=== PATIENT | male | born 1985 | race Caucasian/White ===

== ENCOUNTER 2016-11-05 11:17 | Emergency (ER) | payer BC ==
--- NOTE | 2016-11-05 12:06 | EDM.PDOC ---
ED HPI GENERAL MEDICAL PROBLEM - General Chief Complaint: Upper Extremity Injury/Pain Stated Complaint: PAIN IN LEFT HAND Time Seen by Provider: 11/05/16 11:40 Source of Information: Reports: Patient History Limitations: Reports: No Limitations - History of Present Illness INITIAL COMMENTS - FREE TEXT/NARRATIVE: History of present illness: [31-year-old male comes in complaining of left hand pain status post punching a wall there is an obvious abrasion over the third digit knuckle with generalized swelling to the hand] Review of systems: As per history of present illness and below otherwise all systems reviewed and negative. Past medical history: As per history of present illness and as reviewed below otherwise noncontributory. Surgical history: As per history of present illness and as reviewed below otherwise noncontributory. Social history: No reported history of drug or alcohol abuse. Family history: As per history of present illness and as reviewed below otherwise noncontributory. Physical exam: HEENT: Atraumatic, normocephalic, pupils reactive, negative for conjunctival pallor or scleral icterus, mucous membranes moist, throat clear, neck supple, nontender, trachea midline. Lungs: Clear to auscultation, breath sounds equal bilaterally, chest nontender. Heart: S1S2, regular, negative for clicks, rubs, or JVD. Abdomen: Soft, nondistended, nontender. Negative for masses or hepatosplenomegaly. Negative for costovertebral tenderness. Pelvis: Stable nontender. Genitourinary: Deferred. Rectal: Deferred. Extremities: Left hand edematous with good pulses and abrasion to the area over knuckle of hand at the third digit, negative for cords or calf pain. Neurovascular unremarkable. Neuro: Awake, alert, oriented. Cranial nerves II through XII unremarkable. Cerebellum unremarkable. Motor and sensory unremarkable throughout. Exam nonfocal. Diagnostics: [X-ray of hand] Therapeutics: [] Impression: [Boxer's fracture] Plan: [Ulnar gutter splint with follow-up with Ortho] Definitive disposition and diagnosis as appropriate pending reevaluation and review of above. left hand Pain Score (Numeric/FACES): 7 - Related Data Allergies Allergy/AdvReac Type Severity Reaction Status Date / Time cefaclor [From [facility]] Allergy Hives Verified 11/05/16 11:31 Home Meds: Home Meds . [No Known Home Meds] 11/05/16 [History] Past Medical History - Past Health History Medical/Surgical History: Denies Medical/Surgical History Social & Family History - Family History Family Medical History: Noncontributory - Tobacco Use Smoking Status *Q: Current Every Day Smoker Years of Tobacco use: 15 Packs/Tins Daily: 1 - Recreational Drug Use Recreational Drug Use: Yes Drug Use in Last 12 Months: Yes Recreational Drug Type: Reports: Marijuana/Hashish Review of Systems - Review of Systems Review Of Systems: See Below (See history of present illness) ED EXAM, GENERAL - Physical Exam Exam: See Below (See history of present illness) Course - Vital Signs Last Recorded V/S: Last Vital Signs Temp 36.6 C 11/05/16 11:17 Pulse 90 11/05/16 11:17 Resp 18 11/05/16 11:17 BP 127/74 11/05/16 11:17 Pulse Ox 98 11/05/16 11:17 Departure - Departure Time of Disposition: 13:15 Disposition: Home, Self-Care 01 Condition: Good Clinical Impression: Boxers fracture - Discharge Information Instructions: How to Use a Sling, [id number], Cast or Splint Care, Easy-to- Read Referrals: PCP,Unknown [Primary Care Provider] - Forms: ED Department Discharge Additional Instructions: The following information is given to patients seen in the emergency department who are being discharged to home. This information is to outline your options for follow-up care. We provide all patients seen in our emergency department with a follow-up referral. The need for follow-up, as well as the timing and circumstances, are variable depending upon the specifics of your emergency department visit. If you don't have a primary care physician on staff, we will provide you with a referral. We always advise you to contact your personal physician following an emergency department visit to inform them of the circumstance of the visit and for follow-up with them and/or the need for any referrals to a consulting specialist. The emergency department will also refer you to a specialist when appropriate. This referral assures that you have the opportunity for follow-up care with a specialist. All of these measure are taken in an effort to provide you with optimal care, which includes your follow-up. Under all circumstances we always encourage you to contact your private physician who remains a resource for coordinating your care. When calling for follow-up care, please make the office aware that this follow-up is from your recent emergency room visit. If for any reason you are refused follow-up, please contact the [facility] Emergency Department at and asked to speak to the emergency department charge nurse. Take medication as directed Follow-up with PCP 1-2 days Use splint and sling as directed Call Ortho for a follow-up appointment contact information provided Return to ED as needed as discussed [facility] [address], [address] [place] [address]
--- NOTE | 2016-11-05 12:50 | CR ---
EXAMINATION: Left hand HISTORY: Pain COMPARISON: None TECHNIQUE: 2 views FINDINGS/IMPRESSION: There is a mildly angulated nondisplaced mid fifth metacarpal fracture identifie d with overlying soft tissue swelling. Remaining osseous structures and joint spaces appear intact. B one mineralization is otherwise normal.
[2016-11-05 16:23] VITALS: BP 124/79
== END 2016-11-05 13:42 | disposition home or self-care (01) ==
LOC: MW.ED 11:17
DX: S62.357A Nondisplaced fracture of shaft of fifth metacarpal bone, left hand, initial encounter for closed fracture (principal); F17.210 Nicotine dependence, cigarettes, uncomplicated; Z88.1 Allergy status to other antibiotic agents; W22.01XA Walked into wall, initial encounter
CPT/HCPCS: 29125; 73120; 99283; A4566; 99282

== ENCOUNTER 2017-08-07 10:52 | Emergency (ER) | payer BC ==
--- NOTE | 2017-08-07 11:39 | EDM.PDOC ---
ED HPI GENERAL MEDICAL PROBLEM - General Chief Complaint: General Stated Complaint: COUGHING Time Seen by Provider: 08/07/17 11:00 Source of Information: Reports: Patient History Limitations: Reports: No Limitations - History of Present Illness INITIAL COMMENTS - FREE TEXT/NARRATIVE: HISTORY AND PHYSICAL: History of present illness: [Comes to the ER c/o cough, fever and chills. Has been present for the past 3 days, and feels that he is worsening. Is experiencing thick yellow nasal discharge, cough productive for yellow sputum. He has been experiencing episodes of feeling hot and sweaty alternating with chills. Has not checked his temperature at home. Does not have any wheezing chest pain or shortness of breath. he's felt more fatigued than usual. Decreased appetite. No abdominal pain nausea or vomiting. He has not taken any medications for his symptoms. Looks cigarettes daily] Review of systems: As per history of present illness and below otherwise all systems reviewed and negative. Past medical history: As per history of present illness and as reviewed below otherwise noncontributory. Surgical history: As per history of present illness and as reviewed below otherwise noncontributory. Social history: No reported history of drug or alcohol abuse. Family history: As per history of present illness and as reviewed below otherwise noncontributory. Physical exam: HEENT: Atraumatic, normocephalic. TM's are pearly gutierrez and without erythema. Nares patent, copious amount of yellow drainage in nose. Oral mucous membranes pink and moist. Neck supple, no lymphadenopathy. Lungs: Rales are present to posterior bilateral lower lung gonzales., breath sounds equal bilaterally. Heart: S1S2, regular, negative for clicks, rubs, or JVD. Abdomen: Soft, nondistended, nontender. Negative for masses guarding and rebound. Pelvis: Stable nontender. Genitourinary: Deferred. Rectal: Deferred. Extremities: Atraumatic, negative for cords or calf pain. Neurovascular unremarkable. Neuro: Awake, alert, oriented. Motor and sensory unremarkable throughout. Exam nonfocal. Diagnostics: [Chest x-ray] Impression: [Upper respiratory infection] Plan: [Discussed with patient that a mild infiltrate is appreciated by this provider on his chest x-ray. Due to the severity of his symptoms and the fact that he smokes regularly, will treat with azithromycin in the form of Z-Gustavo. He is given a referral to follow-up with PCP. Recommend Robitussin Delsym Mucinex and cool moist air. He verbalized understanding of today's discussion. Strict return precautions are reviewed.] Definitive disposition and diagnosis as appropriate pending reevaluation and review of above. Generalized Pain Score (Numeric/FACES): 6 - Related Data Allergies Allergy/AdvReac Type Severity Reaction Status Date / Time cefaclor [From Ceclor] Allergy Hives Verified 08/07/17 11:04 Home Meds: Home Meds . [No Known Home Meds] 11/05/16 [History] Past Medical History - Past Health History Medical/Surgical History: Denies Medical/Surgical History - Infectious Disease History Infectious Disease History: Reports: Chicken Pox - Past Surgical History HEENT Surgical History: Reports: Adenoidectomy Social & Family History - Family History Family Medical History: Noncontributory - Tobacco Use Smoking Status *Q: Current Every Day Smoker Years of Tobacco use: 17 Packs/Tins Daily: 1 - Caffeine Use Caffeine Use: Reports: Energy Drinks, Soda - Recreational Drug Use Recreational Drug Use: Yes Recreational Drug Type: Reports: Marijuana/Hashish Recreational Drug Use Frequency: Rarely ED ROS GENERAL - Review of Systems Review Of Systems: ROS reveals no pertinent complaints other than HPI. ED EXAM, GENERAL - Physical Exam Exam: See Below Course - Vital Signs Last Recorded V/S: Last Vital Signs Temp 98.3 F 08/07/17 11:04 Pulse 78 08/07/17 12:39 Resp 18 08/07/17 12:39 BP 128/76 08/07/17 12:39 Pulse Ox 98 08/07/17 12:39 - Orders/Labs/Meds Orders: Active Orders 24 hr Category Date Time Status Chest 2V [CR] Stat Exams 08/07/17 11:22 Taken Departure - Departure Time of Disposition: 12:30 Disposition: Home, Self-Care 01 Condition: Good Clinical Impression: URI (upper respiratory infection) - Discharge Information Instructions: Upper Respiratory Infection, Adult, [id number] Referrals: PCP,None [Primary Care Provider] - Forms: ED Department Discharge Additional Instructions: The following information is given to patients seen in the emergency department who are being discharged to home. This information is to outline your options for follow-up care. We provide all patients seen in our emergency department with a follow-up referral. The need for follow-up, as well as the timing and circumstances, are variable depending upon the specifics of your emergency department visit. If you don't have a primary care physician on staff, we will provide you with a referral. We always advise you to contact your personal physician following an emergency department visit to inform them of the circumstance of the visit and for follow-up with them and/or the need for any referrals to a consulting specialist. The emergency department will also refer you to a specialist when appropriate. This referral assures that you have the opportunity for follow-up care with a specialist. All of these measure are taken in an effort to provide you with optimal care, which includes your follow-up. Under all circumstances we always encourage you to contact your private physician who remains a resource for coordinating your care. When calling for follow-up care, please make the office aware that this follow-up is from your recent emergency room visit. If for any reason you are refused follow-up, please contact the [facility] emergency department at and asked to speak to the emergency department charge nurse. [facility] [address] [place] [phone] Establish care with a local primary care provider in follow-up there in the next 48-72 hours. Take antibiotic and medication as prescribed. Return to ER as needed as discussed.
[2017-08-07 12:40] VITALS: BP 128/76
--- NOTE | 2017-08-08 12:42 | CR ---
EXAM DATE: 08/07/17 PATIENT'S AGE: 32 Patient: KIMBERLY FRASER Facility: [place], [place] Site . Site : 1985 Study: XRay Chest [id number]/7/2018 11:46:59 AM Ordering Physician: Doctor Powell Final Report: INDICATION: SOB, COUGH X 3DAYS TECHNIQUE: Chest 2 views. COMPARISON: None. FINDINGS: Cardiovascular and mediastinum: Heart size and vasculature are normal in caliber and appearance. Mediastinum is within normal limits. Lungs and pleural spaces: Lungs are clear. No sign of infiltrate or mass. No sign of pleural effusion. No pneumothorax. Bones and soft tissues: No significant findings. IMPRESSION: Unremarkable chest. Dictated by: Reginald Camacho MD @ 08/07/2017 12:24:50 (Electronic Signature) Report Signed by Proxy. STR[facility]ORIAL HOSPITALChantelle
== END 2017-08-07 12:35 | disposition home or self-care (01) ==
LOC: MW.ED 10:52
DX: J06.9 Acute upper respiratory infection, unspecified (principal); F17.210 Nicotine dependence, cigarettes, uncomplicated
CPT/HCPCS: 71046; 71046-26; 99283

== ENCOUNTER 2019-03-29 07:15 | Day surgery (SDC) | payer BC ==
[~2019-03-29 07:15] MED LIST: Lactated Ringers 1,000 ML IV SCH
--- NOTE | 2019-03-29 07:57 | PCM.PREANE ---
Preanesthetic Assessment - Anesthesia/Transfusion/Family Hx Anesthesia History: Prior Anesthesia Without Reaction Family History of Anesthesia Reaction: No Transfusion History: No Prior Transfusion(s) - Review of Systems General: No Symptoms Pulmonary: No Symptoms Cardiovascular: No Symptoms Gastrointestinal: No Symptoms Neurological: No Symptoms Other: Reports: None - Physical Assessment NPO Status Date: 03/28/19 Vital Signs: Last Vital Signs Temp 97.2 F 03/29/19 07:25 Pulse 68 03/29/19 07:25 Resp 16 03/29/19 07:25 BP 124/78 03/29/19 07:25 Pulse Ox 97 03/29/19 07:25 Height: 5 ft 10 in Weight: 91.626 kg ASA Class: 2 Mental Status: Alert & Oriented x3 Airway Class: Mallampati = 2 Dentition: Reports: [place](s) ROM/Head Extension: Full Lungs: Clear to Auscultation, Normal Respiratory Effort Cardiovascular: Regular Rate, Regular Rhythm - Allergies Allergies/Adverse Reactions: Allergies Allergy/AdvReac Type Severity Reaction Status Date / Time cefaclor [From Ceclor] Allergy Hives Verified 03/29/19 07:45 - Blood Blood Available: No - Anesthesia Plan Pre-Op Medication Ordered: None - Acknowledgements Anesthesia Type Planned: General Anesthesia Pt an Appropriate Candidate for the Planned Anesthesia: Yes Alternatives and Risks of Anesthesia Discussed w Pt/Guardian: Yes Pt/Guardian Understands and Agrees with Anesthesia Plan: Yes Additional Comments: PMH: gerd/reflux, umb hernia, quit smoking 4 wks ago PLAN: tiva PreAnesthesia Questionnaire - Past Health History Medical/Surgical History: Denies Medical/Surgical History Gastrointestinal History: Reports: GERD Musculoskeletal History: Reports: Fracture Other Musculoskeletal History: hx fx arm as a child - Infectious Disease History Infectious Disease History: Reports: Chicken Pox - Past Surgical History Head Surgeries/Procedures: Reports: None HEENT Surgical History: Reports: Adenoidectomy - SUBSTANCE USE Smoking Status *Q: Former Smoker Tobacco Use Within Last Twelve Months: Cigarettes Recreational Drug Type: Reports: Marijuana/Hashish - HOME MEDS Home Medications: Home Meds Calcium Carbonate [Tums] 1 tab.chew CHEW ASDIRECTED PRN 03/24/19 [History] - CURRENT (IN HOUSE) MEDS Current Meds: Current Medications Lactated Ringer's (Ringers, Lactated) 1,000 mls @ 125 mls/hr IV ASDIRECTED [facility] Last Admin: 03/29/19 07:39 Dose: 125 mls/hr
[2019-03-29] MEDS ORDERED: Lidocaine 2% 5 ML SDV ONE (08:06)
[2019-03-29] MEDS ORDERED: fentaNYL 100 MCG/2 ML SDV ONE (08:06)
[2019-03-29] MEDS ORDERED: Midazolam 1 MG/ML 2 ML SDV ONE ×2 (08:06→09:16)
[2019-03-29] MEDS ORDERED: Propofol 200 MG/20 ML SDV ONE ×3 (08:06→10:00)
[2019-03-29] MEDS ORDERED: Lactated Ringers 1,000 ML IV SCH (08:45)
--- NOTE | 2019-03-29 08:46 | PCM.OPNOTE ---
- General Post-Op/Procedure Note Date of Surgery/Procedure: 03/29/19 Operative Procedure(s): Esophagogastroduodenoscopy with gastric and esophageal biopsies Pre Op Diagnosis: Chronic progressive heartburn Post-Op Diagnosis: Mild chronic gastritis. Acute esophagitis Anesthesia Technique: MAC (ASA II) Primary Surgeon: Tommie Alvares Condition: Good Free Text/Narrative:: DICTATION [id number] CPT CODE [id number]
--- NOTE | 2019-03-29 08:59 | PCM.POSTAN ---
POST ANESTHESIA ASSESSMENT - MENTAL STATUS Mental Status: Alert, Oriented - VITAL SIGNS Vital Signs: Last Vital Signs Temp 97.2 F 03/29/19 07:25 Pulse 72 03/29/19 08:53 Resp 21 H 03/29/19 08:53 BP 143/73 H 03/29/19 08:53 Pulse Ox 96 03/29/19 08:53 - RESPIRATORY Respiratory Status: Respiratory Rate WNL, Airway Patent, O2 Saturation Stable - CARDIOVASCULAR CV Status: Pulse Rate WNL, Blood Pressure Stable - GASTROINTESTINAL GI Status: No Symptoms - PAIN Pain Score: 0 - POST OP HYDRATION Hydration Status: Adequate & Stable
[2019-03-29 09:17] VITALS: BP 139/73; PULSE 71
--- NOTE | 2019-03-29 09:20 | PCM48HPAN ---
Post Anesthesia Note - EVALUATION WITHIN 48HRS OF ANESTHETIC Vital Signs in Normal Range: Yes Patient Participated in Evaluation: Yes Respiratory Function Stable: Yes Airway Patent: Yes Cardiovascular Function Stable: Yes Hydration Status Stable: Yes Pain Control Satisfactory: Yes Nausea and Vomiting Control Satisfactory: Yes Mental Status Recovered: Yes Vital Signs: Last Vital Signs Temp 97.0 F 03/29/19 09:00 Pulse 71 03/29/19 09:00 Resp 14 03/29/19 09:00 BP 139/73 03/29/19 09:00 Pulse Ox 94 L 03/29/19 09:00
[2019-03-29] MEDS ORDERED: Phenylephrine/Normal Saline 100 MCG/ML 10 ML Syringe ONE (10:24)
--- NOTE | 2019-03-29 13:47 | OR ---
SURGEON: Tommie Alvares M.D. DATE OF PROCEDURE: 03/29/2019 OPERATION PERFORMED: Esophagogastroduodenoscopy with gastric and esophageal biopsies. PRIMARY SURGEON: Tommie Alvares MD. ANESTHESIA: MAC. ASA CLASSIFICATION: II. PREOPERATIVE DIAGNOSES: 1. Chronic progressive heartburn. 2. Mild hematemesis. POSTOPERATIVE DIAGNOSES: 1. Mild chronic gastritis. 2. Distal esophagitis. DESCRIPTION OF PROCEDURE: The patient was taken to the endoscopy room, positioned on the endoscopy table in the supine position. Time-out was called for appropriate identification of the patient and procedure. Monitored anesthesia care was provided. The bite block was placed between the patient's teeth. The gastroscope was inserted through the bite block and advanced through the oropharynx into the esophagus and subsequently through the esophagus and stomach into the duodenum where examination was now carried out in a retrograde fashion. The duodenum showed no acute inflammatory changes or ulcerations. The gastroscope was withdrawn to the stomach, which did show a mild gastritis. Antral biopsies were obtained to look for the presence of Helicobacter pylori. The gastroscope was retroflexed to visualize the proximal stomach. No proximal ulcers were identified and there was no significant hiatal hernia. The gastroscope was then straightened and slowly withdrawn, carefully visualizing the greater and lesser curvatures. Again, no ulcerations were noted. The GE junction did show mild to moderate inflammatory changes. Biopsies of the distal esophagus were obtained. The esophagus itself demonstrated good contractility. No mid or proximal lesions were identified. The vocal cords were visualized as the scope was withdrawn. No vocal cord lesions were identified. The gastroscope was then removed with the patient having tolerated the procedure well. He was taken to recovery room in stable condition. NGOZI / ANIA /[id number]
== END 2019-03-29 09:49 | disposition home or self-care (01) ==
LOC: MW.SDS 07:15
PROVIDERS: ATTEND Surgery
DX: K21.0 Gastro-esophageal reflux disease with esophagitis (principal); K29.51 Unspecified chronic gastritis with bleeding; Z87.891 Personal history of nicotine dependence; Z88.1 Allergy status to other antibiotic agents
CPT/HCPCS: 43239; J2001; J2250; J2370; J2704; J3010; J7120; 00731; 88305; 88312

== ENCOUNTER 2019-05-03 06:21 | Day surgery (SDC) | payer BC ==
[~2019-05-03 06:21] MED LIST changes: +Ciprofloxacin in D5W 400 MG in Premix Bag 1 BAG IV SCH
[2019-05-03] MEDS ORDERED: Ondansetron 4 MG/2 ML SDV ONE (07:08)
[2019-05-03] MEDS ORDERED: Lidocaine 2% 5 ML SDV ONE (07:08)
[2019-05-03] MEDS ORDERED: Midazolam 1 MG/ML 2 ML SDV ONE (07:09)
[2019-05-03] MEDS ORDERED: fentaNYL 100 MCG/2 ML SDV ONE (07:09)
[2019-05-03] MEDS ORDERED: Propofol 200 MG/20 ML SDV ONE (07:09)
[2019-05-03] MEDS ORDERED: ceFAZolin 1 GM Vial ONE (07:19)
[2019-05-03] MEDS ORDERED: Bupivacaine 0.5% 10 ML SDV ONE (07:19)
--- NOTE | 2019-05-03 07:25 | PCM.PREANE ---
Preanesthetic Assessment - Anesthesia/Transfusion/Family Hx Anesthesia History: Prior Anesthesia Without Reaction Family History of Anesthesia Reaction: No Transfusion History: No Prior Transfusion(s) - Review of Systems General: No Symptoms Pulmonary: No Symptoms Cardiovascular: No Symptoms Neurological: No Symptoms Other: Reports: None - Physical Assessment NPO Status Date: 05/02/19 Vital Signs: Last Vital Signs Temp 97.3 F 05/03/19 06:33 Pulse 66 05/03/19 06:33 Resp 14 05/03/19 06:33 BP 114/75 05/03/19 06:33 Pulse Ox 96 05/03/19 06:33 Height: 5 ft 10 in Weight: 88.451 kg ASA Class: 2 Mental Status: Alert & Oriented x3 Airway Class: Mallampati = 2 Dentition: Reports: Normal Dentition ROM/Head Extension: Full Lungs: Clear to Auscultation, Normal Respiratory Effort Cardiovascular: Regular Rate, Regular Rhythm - Allergies Allergies/Adverse Reactions: Allergies Allergy/AdvReac Type Severity Reaction Status Date / Time cefaclor [From Ceclor] Allergy Hives Verified 05/03/19 07:05 - Blood Blood Available: No - Anesthesia Plan Pre-Op Medication Ordered: None - Acknowledgements Anesthesia Type Planned: General Anesthesia Pt an Appropriate Candidate for the Planned Anesthesia: Yes Alternatives and Risks of Anesthesia Discussed w Pt/Guardian: Yes Pt/Guardian Understands and Agrees with Anesthesia Plan: Yes Additional Comments: PMH: chronic gastritis, inc umb hernia PLAN: [place] PreAnesthesia Questionnaire - Past Health History Medical/Surgical History: Denies Medical/Surgical History HEENT History: Reports: None Cardiovascular History: Reports: None Respiratory History: Reports: None Gastrointestinal History: Reports: GERD Genitourinary History: Reports: None Musculoskeletal History: Reports: Fracture Other Musculoskeletal History: hx fx arm as a child Neurological History: Reports: None Psychiatric History: Reports: None Endocrine/Metabolic History: Reports: None Hematologic History: Reports: None Immunologic History: Reports: None Oncologic (Cancer) History: Reports: None Dermatologic History: Reports: None - Infectious Disease History Infectious Disease History: Reports: Chicken Pox - Past Surgical History Head Surgeries/Procedures: Reports: None HEENT Surgical History: Reports: Adenoidectomy Cardiovascular Surgical History: Reports: None Respiratory Surgical History: Reports: None GI Surgical History: Reports: None Male Surgical History: Reports: None Endocrine Surgical History: Reports: None Neurological Surgical History: Reports: None Musculoskeletal Surgical History: Reports: None Oncologic Surgical History: Reports: None Dermatological Surgical History: Reports: None - SUBSTANCE USE Smoking Status *Q: Former Smoker Tobacco Use Within Last Twelve Months: Cigarettes Recreational Drug Type: Reports: Marijuana/Hashish Recreational Drug Last Use: 1 month ago - HOME MEDS Home Medications: Home Meds Calcium Carbonate [Tums] 1 tab.chew CHEW ASDIRECTED PRN 03/24/19 [History] - CURRENT (IN HOUSE) MEDS Current Meds: Current Medications Ciprofloxacin/Dextrose 400 mg/ (Premix) 200 mls @ 200 mls/hr IV Q12H [facility] Last Admin: 05/03/19 07:06 Dose: 200 mls/hr Lactated Ringer's (Ringers, Lactated) 1,000 mls @ 125 mls/hr IV ASDIRECTED [facility] Last Admin: 05/03/19 07:03 Dose: 125 mls/hr Discontinued Medications Bupivacaine HCl (Sensorcaine-Mpf 0.5%) Confirm Administered Dose 10 ml .ROUTE .STK-MED ONE Stop: 05/03/19 07:20 Cefazolin Sodium (Ancef) Confirm Administered Dose 1 gm .ROUTE .STK-MED ONE Stop: 05/03/19 07:20 Fentanyl (Sublimaze) Confirm Administered Dose 300 mcg .ROUTE .STK-MED ONE Stop: 05/03/19 07:10 Lidocaine (Xylocaine-Mpf 2%) Confirm Administered Dose 5 ml .ROUTE .STK-MED ONE Stop: 05/03/19 07:09 Midazolam HCl (Versed 1 Mg/Ml) Confirm Administered Dose 2 mg .ROUTE .STK-MED ONE Stop: 05/03/19 07:10 Ondansetron HCl (Zofran) Confirm Administered Dose 4 mg .ROUTE .STK-MED ONE Stop: 05/03/19 07:09 Propofol (Diprivan 20 Ml) Confirm Administered Dose 200 mg .ROUTE .STK-MED ONE Stop: 05/03/19 07:10
[2019-05-03] MEDS ORDERED: Glycopyrrolate 0.2 MG/ML SDV ONE ×2 (08:13→08:20)
[2019-05-03] MEDS ORDERED: fentaNYL 100 MCG/2 ML SDV IVPUSH PRN (08:32)
[2019-05-03] MEDS ORDERED: 50% Dextrose in Water 50 ML Syringe IVPUSH PRN (08:32)
[2019-05-03] MEDS ORDERED: EPINEPHrine 1:10,000 1 MG/10 ML Syringe IVPUSH PRN (08:32)
[2019-05-03] MEDS ORDERED: Albuterol 0.083% 2.5 MG/3 ML Neb Soln NEB PRN (08:32)
[2019-05-03] MEDS ORDERED: Atropine 0.1 MG/ML 10 ML Syringe IVPUSH PRN ×2 (08:32)
[2019-05-03] MEDS ORDERED: Naloxone 0.4 MG/ML Syringe IVPUSH PRN (08:32)
[2019-05-03] MEDS ORDERED: Ondansetron 4 MG/2 ML SDV IVPUSH PRN (08:44)
[2019-05-03] MEDS ORDERED: Acetaminophen/HYDROcodone 325-5 MG Tab PO PRN (08:44)
[2019-05-03] MEDS ORDERED: Morphine 10 MG/ML Syringe IVPUSH PRN (08:44)
[2019-05-03] MEDS ORDERED: Lactated Ringers 1,000 ML IV SCH (08:45)
--- NOTE | 2019-05-03 08:51 | PCM.OPNOTE ---
- General Post-Op/Procedure Note Date of Surgery/Procedure: 05/03/19 Operative Procedure(s): Repair incarcerated umbilical hernia Pre Op Diagnosis: Incarcerated umbilical hernia Post-Op Diagnosis: Same Anesthesia Technique: General LMA (ASA II) Primary Surgeon: Tommie Alvares Fluid Replacement, Intraop: 1,000 EBL in mLs: 5 Condition: Good Free Text/Narrative:: DICTATION [id number] CPT CODE [id number]
--- NOTE | 2019-05-03 10:27 | OR ---
SURGEON: Tommie Alvares M.D. DATE OF PROCEDURE: 05/03/2019 OPERATION PERFORMED: Repair of incarcerated umbilical hernia. PRIMARY SURGEON: Tommie Alvares MD. ANESTHESIA: General LMA. ASA CLASSIFICATION: II. PREOPERATIVE DIAGNOSIS: Incarcerated umbilical hernia. POSTOPERATIVE DIAGNOSIS: Incarcerated umbilical hernia. ESTIMATED BLOOD LOSS: 5 mL. INTRAOPERATIVE FLUID REPLACEMENT: 1000 mL of crystalloid. DESCRIPTION OF PROCEDURE: The patient was taken to the operating room and placed on the operating table in the supine position. Time-out was called for appropriate identification of the patient and procedure. Following satisfactory attainment of general endotracheal anesthesia, the abdomen was prepped with DuraPrep solution and sterile drapes were applied. The skin incision had previously been marked out and was now infiltrated with 0.5% Marcaine solution. It should also be noted that the surgical site had been marked prior to the patient entering the operating room. Skin incision was made and deepened through the subcutaneous tissue obtaining hemostasis with the use of electrocautery. Dissection was carried down to the hernia sac, which was circumferentially dissected, and then able to be reduced. The defect was approximately 4 mm. This was repaired with multiple interrupted 0 Ethibond sutures. All sutures were placed under direct vision and held with hemostats until the final suture had been placed. All sutures were then tied. The patient was given a Valsalva maneuver to 35 cm of water and the repair felt to be solid. Wound was inspected for hemostasis and small bleeding sites were electrocoagulated. The subcutaneous tissue was closed with 3-0 Vicryl. Skin edges were reapproximated with subcuticular 4-0 Monocryl and half-inch Steri-Strips were applied. The incision was then dressed with a sterile Tegaderm pad. Sponge, needle, and instrument counts were all correct. Following emergence from anesthesia and extubation, the patient was taken to recovery room in stable condition. NGOZI / JAVIERL /[id number]
[2019-05-03 10:33] VITALS: BP 120/73; PULSE 81
--- NOTE | 2019-05-03 10:41 | PCM.POSTAN ---
POST ANESTHESIA ASSESSMENT - MENTAL STATUS Mental Status: Alert, Oriented - VITAL SIGNS Vital Signs: Last Vital Signs Temp 97.5 F 05/03/19 09:45 Pulse 81 05/03/19 10:30 Resp 14 05/03/19 10:30 BP 120/73 05/03/19 10:30 Pulse Ox 95 05/03/19 10:30 - RESPIRATORY Respiratory Status: Respiratory Rate WNL, Airway Patent, O2 Saturation Stable - CARDIOVASCULAR CV Status: Pulse Rate WNL, Blood Pressure Stable - GASTROINTESTINAL GI Status: No Symptoms - POST OP HYDRATION Hydration Status: Adequate & Stable
--- NOTE | 2019-05-03 10:41 | PCM48HPAN ---
Post Anesthesia Note - EVALUATION WITHIN 48HRS OF ANESTHETIC Vital Signs in Normal Range: Yes Patient Participated in Evaluation: Yes Respiratory Function Stable: Yes Airway Patent: Yes Cardiovascular Function Stable: Yes Hydration Status Stable: Yes Pain Control Satisfactory: Yes Nausea and Vomiting Control Satisfactory: Yes Mental Status Recovered: Yes Vital Signs: Last Vital Signs Temp 97.5 F 05/03/19 09:45 Pulse 81 05/03/19 10:30 Resp 14 05/03/19 10:30 BP 120/73 05/03/19 10:30 Pulse Ox 95 05/03/19 10:30
== END 2019-05-03 11:38 | disposition home or self-care (01) ==
LOC: MW.SDS 06:21
PROVIDERS: ATTEND Surgery
DX: K42.0 Umbilical hernia with obstruction, without gangrene (principal); K21.9 Gastro-esophageal reflux disease without esophagitis; F17.210 Nicotine dependence, cigarettes, uncomplicated; Z88.1 Allergy status to other antibiotic agents
CPT/HCPCS: 49587; A9270; J0744; J2001; J2250; J2270; J2405; J2704; J3010; J3490; J7120; J0690